=== PATIENT | male | born 1980 | race Caucasian/White ===

== ENCOUNTER 2016-07-30 05:36 | Emergency (ER) | payer OTHER ==
--- NOTE | 2016-07-30 07:51 | DIAGNOSTIC IMAGING REPORT ---
PROCEDURE: CT ABDOMEN/PELVIS W/O CONTRAST INDICATION: FLANK PAIN TECHNIQUE: Noncontrast axial images with sagittal and coronal reformations. COMPARISON: None. FINDINGS: ABDOMEN: There is mild right hydronephrosis secondary to a 10 mm calculus located at the right ureteral pelvic junction. There is a 1 mm nonobstructing calculus in the lower pole right kidney. Left kidney and ureter are normal. Gallbladder, liver, spleen, pancreas, and aorta are normal. Bowel pattern is normal, including appendix. PELVIS: Prostate is of normal size 94.1 cm). Pelvic structures are normal. IMPRESSION: 1. Mild right hydronephrosis secondary to a 10 mm calculus located at the right ureteral pelvic junction. 2. There is a 1 mm nonobstructing calculus in the lower pole right kidney. 3. Findings discussed with Dr. Zhang. All CT scans at this facility use dose modulation, iterative reconstruction, and/or weight-based dosing when appropriate to reduce radiation dose to as low as reasonably achievable.
--- NOTE | 2016-07-30 08:13 | DIAGNOSTIC IMAGING REPORT ---
PROCEDURE: XR ABDOMEN 1 VIEW INDICATION: Right ureteral pelvic junction calculus. TECHNIQUE: AP supine view. COMPARISON: Compared CT abdomen and pelvis earlier (07/30/2016). FINDINGS: There is a 10 mm density in the right upper abdomen which corresponds to the ureteral pelvic junction calculus. A 1 mm renal calculus is not clearly identified Bowel pattern is normal. Soft tissues and osseous structures are normal. IMPRESSION: 1. There is a 10 mm density in the right upper abdomen which corresponds to the ureteral pelvic junction calculus.
--- NOTE | 2016-07-30 09:34 | ED NURSING NOTES ---
Clinical Report - Nurses [facility] [address] [place] [address] 07/30/2016 5:35 Patient: MASOUD MUÑOZ TRIAGE Triage time 05:40. Acuity: LEVEL 3. Chief Complaint: NAUSEA and FLANK PAIN. --05:47 Iman Reyna R.N. 05:39 07/30/16. BP: 150/93. HR: 95. RR: 20 (regular and unlabored). O2 saturation: 99%. Temp: 97.9 F (oral). Pain level now: 11/26. --05:47 Iman Reyna R.N. Weight: 113.3 kg stated. Height/Length: 70 inches Per Patient. BMI: 35.8. --05:42 Iman Reyna R.N. Medications None. --05:42 Iman Reyna R.N. Allergies Vicoden. Definite Severe(hives) --05:51 Iman Reyna R.N. The following entry was struck by Iman Reyna R.N., 05:51 (07/30/16) Reason - other(pt stated). <<STRICKEN ENTRY-- No Known Drug Allergy. --05:42 Iman Reyna R.N. --END STRIKE>>. History Arrived by private vehicle. Historian: patient. Accompanied by family. Primary physician (none). ( right sided pain, N/V started about 329. hx of kidney stones). Last oral intake by patient was (2129). 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 PAST MEDICAL HX: Immunizations: up-to-date. SOCIAL HX: Light tobacco smoker (cigarette)- less than 1/2 a pack per day. Alcohol use; consumes two beers. History of occasional drug use: marijuana. (7 days ago). No known contact with a sick individual. ABUSE ASSESSMENT: No report of abuse. SELF HARM ASSESSMENT: A self harm assessment was performed. The patient answered "no" to the question "Have you recently felt down, depressed, or hopeless?", "Have you noticed less interest or pleasure in doing things?", "Do you have thoughts of harming or killing yourself?", "Are you here because you tried to hurt yourself?", "Have you ever tried to hurt yourself before today?", "Have you recently had thoughts about harming or killing others?" and "Do you have any dangerous items in your possession?". FALL RISK ASSESSMENT: Fall risk assessment completed. No fall risk identified. NUTRITIONAL RISK ASSESSMENT: The nutritional risk assessment revealed no deficiencies. FUNCTIONAL ASSESSMENT: Functional assessment: no impairments noted. LEARNING NEEDS ASSESSMENT: The learning needs assessment revealed no barriers. SKIN INTEGRITY ASSESSMENT: Skin integrity risk assessment completed. No skin integrity risk identified. --05:47 Iman Reyna R.N. PROBLEMS: Nephrolithiasis. Left ocular fx. Sinusitis. Muscle Strain, Lower Extremity. Back Pain. Sprain. Myofascial Strain. Renal Colic. Tetanus Status. Immunizations. --05:42 Iman Reyna R.N. ADDITIONAL SURGERIES: Metal plate under left eye. Nose reconstructed. Tonsillectomy. --05:42 Iman Reyna R.N. Interventions ID band on patient. --05:47 Iman Reyna R.N. PHYSICAL ASSESSMENT Ambulatory to room. GENERAL / NEURO / PSYCH: Alert. Oriented X 4. Appears in pain. HEENT: Mucous membranes are pink. RESPIRATORY: Respirations not labored. Breath sounds within normal limits. CVS: Normal sinus rhythm noted. Capillary refill less than 2 seconds. GI / : The patient has had intermittent episodes of nausea. Emesis noted. Has vomited several times. Abdominal tenderness (right flank pain). Bowel sounds within normal limits. SKIN: Skin is profusely diaphoretic. --05:49 Iman Reyna R.N. NURSING PROGRESS NOTES Two patient identifiers checked. Call light placed in reach. Side rails up x 2. Bed placed in lowest position. Brakes of bed on. Patient ready for evaluation- chart flagged. --05:49 Iman Reyna R.N. 05:50 07/30/2016 Site #1 started via IV in the right antecubital space with an 20g angiocath, with aseptic technique and good blood return; one attempt. Blood drawn: rainbow set. Labeled in the presence of the patient and sent to the lab. Saline lock flushed with 10 mL saline. --06:00 Iman Reyna R.N. 05:58 07/30/2016 Zofran (Ondansetron HCl) IVP 4 mg given over 2 minute(s) via site #1. Allergies verified and confirmed 5 rights. IV patency established. IV site checked: no pain, redness, or swelling. IV flushed thoroughly pre- and post-medication administration. IVP given by RN. --06:01 Iman Reyna R.N. 06:00 07/30/2016 Toradol IVP 30 mg given over 2 minute(s) via site #1. Allergies verified and confirmed 5 rights. IV patency established. IV site checked: no pain, redness, or swelling. IV flushed thoroughly pre- and post-medication administration. IVP given by RN. --06:01 Iman Reyna R.N. 06:17 07/30/2016 Toradol IVP Response: pain is improving. Symptoms have improved the patient feels better. --06:17 Iman Reyna R.N. ( pt ambulating to BR attempting to void). --06:28 Iman Reyna R.N. 06:28 07/30/2016 Started bag #1 1000 mL IV Fluids IV NS (Saline); bolus of 1000 mL wide open then over 1 hour(s) via site #1. Allergies verified and confirmed 5 rights. IV patency established. IV site checked: no pain, redness, or swelling. IV flushed thoroughly pre- and post-medication administration. --06:29 Iman Reyna R.N. Patient ID band checked for patient name and birthdate: patient confirmed. Instructions provided to collect clean catch urine and patient verbalized understanding. Clean catch urine collected with return of prasad-colored clear urine; sample sent to lab for urinalysis and culture. Specimen labeled in the presence of the patient. --06:45 Iman Reyna R.N. Two patient identifiers checked. Call light placed in reach. Side rails up x 1. Bed placed in lowest position. Brakes of bed on. --06:45 Iman Reyna R.N. 06:57 07/30/2016 Dilaudid (HYDROmorphone HCl PF) IVP 0.5 mg given over 2 minute(s) via site #1. Allergies verified, confirmed 5 rights and sedative warning given to the patient and patient's family. IV patency established. IV site checked: no pain, redness, or swelling. IV flushed thoroughly pre- and post-medication administration. IVP given by RN. --06:57 Iman Reyna R.N. Patient transported to CT by stretcher with tech. (06:58). --06:59 Iman Reyna R.N. 07:23 07/30/2016 Flomax (Tamsulosin HCl) PO Capsules 0.4 mg given. Allergies verified and confirmed 5 rights. --07:23 Nel Phan R.N. 07:37 07/30/2016 Dilaudid (HYDROmorphone HCl PF) IVP 0.5 mg given over 2 minute(s) via site #1. Allergies verified, confirmed 5 rights and sedative warning given to the patient and patient's family. IV patency established. IV site checked: no pain, redness, or swelling. IV flushed thoroughly pre- and post-medication administration. IVP given by RN. --07:37 Nel Phan R.N. Patient walked to radiology with tech. --07:45 Nel Phan R.N. Patient walked back to ED from radiology with tech. --07:56 Nel Phan R.N. 08:01 07/30/2016 Dilaudid (HYDROmorphone HCl PF) IVP 0.5 mg given over 2 minute(s) via site #1. Allergies verified, confirmed 5 rights and sedative warning given to the patient and patient's family. IV patency established. IV site checked: no pain, redness, or swelling. IV flushed thoroughly pre- and post-medication administration. IVP given by RN. --08:01 Nel Phan R.N. 08:15 07/30/2016 IV Fluids IV NS Discontinued: bag #1 infused. Total amount infused: 1000 mL. --08:15 Nel Phan R.N. 08:17 07/30/2016 Started bag #1 1000 mL IV Fluids IV NS (Saline); at 150 mL/hr via site #1 --08:17 Nel Phan R.N. 08:34 07/30/2016 Dilaudid (HYDROmorphone HCl PF) IVP 0.5 mg given over 2 minute(s) via site #1. Allergies verified, confirmed 5 rights and sedative warning given to the patient and patient's family. IV patency established. IV site checked: no pain, redness, or swelling. IV flushed thoroughly pre- and post-medication administration. IVP given by RN. --08:34 Nel Phan R.N. ( Called Dr. Carolyn Garcia for Dr. Zhang .-[phone]). --08:41 Terrie Haji ER [facility] [place] 09:49 07/30/2016 IV Fluids IV NS Discontinued. Total amount infused: 150 mL. IV patency established. IV site checked: no pain, redness, or swelling. IV flushed thoroughly. --09:59 Masoud Lobato R.N. 09:50 07/30/2016 Dilaudid (HYDROmorphone HCl PF) IVP 0.5 mg given over 2 minute(s) via site #1. Allergies verified, confirmed 5 rights and sedative warning given to the patient. IV patency established. IV site checked: no pain, redness, or swelling. IV flushed thoroughly pre- and post-medication administration. IVP given by RN. --09:51 Masoud Lobato R.N. DISPOSITION / DISCHARGE 09:53 07/30/2016 Site #[address] upon transfer. Flushed with 10 mL saline; flushes easily (to [facility] via MD angie CEVALLOS with pt leaving IV in). --09:53 Masoud Lobato R.N. 09:54 07/30/16. Condition at departure: improved. The goals identified in the patient's plan of care were met. No learning barriers present. Discharge instructions provided and reviewed with the patient. Reviewed warnings. Reviewed medication(s). Treatments reviewed. Reviewed referrals for followup and testing (To [facility] surgery). Patient and spouse verbalized understanding. Written instructions provided in Danish. The patient was discharged by the physician. He was discharged home and accompanied by family. He left the Emergency Department ambulatory and via private vehicle. Family member driving. ( To [facility] for Surgery today). FALL RISK ASSESSMENT: Fall risk assessment completed. No fall risk identified. --09:54 Masoud Lobato R.N. 09:52 07/30/16. BP: 148/91. HR: 87. RR: 18. O2 saturation: 99% on room air. Temp: 98.2 F (oral). Pain level now: 07/27. --09:54 Masoud Lobato R.N. 09:54 07/30/16. Departure time: :Jul 30 2016. --09:54 Masoud Lobato R.N. Locked/Released at 07/30/2016 9:59 by Masoud Lobato R.N.
--- NOTE | 2016-07-30 09:34 | ED NURSING NOTES ---
Clinical Report - Nurses [facility] [address] [place] [address] 07/30/2016 5:35 Patient: MASOUD MUÑOZ TRIAGE Triage time 05:40. Acuity: LEVEL 3. Chief Complaint: NAUSEA and FLANK PAIN. --05:47 Iman Reyna R.N. 05:39 07/30/16. BP: 150/93. HR: 95. RR: 20 (regular and unlabored). O2 saturation: 99%. Temp: 97.9 F (oral). Pain level now: 11/26. --05:47 Iman Reyna R.N. Weight: 113.3 kg stated. Height/Length: 70 inches Per Patient. BMI: 35.8. --05:42 Iman Reyna R.N. Medications None. --05:42 Iman Reyna R.N. Allergies Vicoden. Definite Severe(hives) --05:51 Iman Reyna R.N. The following entry was struck by Iman Reyna R.N., 05:51 (07/30/16) Reason - other(pt stated). <<STRICKEN ENTRY-- No Known Drug Allergy. --05:42 Iman Reyna R.N. --END STRIKE>>. History Arrived by private vehicle. Historian: patient. Accompanied by family. Primary physician (none). ( right sided pain, N/V started about 329. hx of kidney stones). Last oral intake by patient was (2129). 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 PAST MEDICAL HX: Immunizations: up-to-date. SOCIAL HX: Light tobacco smoker (cigarette)- less than 1/2 a pack per day. Alcohol use; consumes two beers. History of occasional drug use: marijuana. (7 days ago). No known contact with a sick individual. ABUSE ASSESSMENT: No report of abuse. SELF HARM ASSESSMENT: A self harm assessment was performed. The patient answered "no" to the question "Have you recently felt down, depressed, or hopeless?", "Have you noticed less interest or pleasure in doing things?", "Do you have thoughts of harming or killing yourself?", "Are you here because you tried to hurt yourself?", "Have you ever tried to hurt yourself before today?", "Have you recently had thoughts about harming or killing others?" and "Do you have any dangerous items in your possession?". FALL RISK ASSESSMENT: Fall risk assessment completed. No fall risk identified. NUTRITIONAL RISK ASSESSMENT: The nutritional risk assessment revealed no deficiencies. FUNCTIONAL ASSESSMENT: Functional assessment: no impairments noted. LEARNING NEEDS ASSESSMENT: The learning needs assessment revealed no barriers. SKIN INTEGRITY ASSESSMENT: Skin integrity risk assessment completed. No skin integrity risk identified. --05:47 Iman Reyna R.N. PROBLEMS: Nephrolithiasis. Left ocular fx. Sinusitis. Muscle Strain, Lower Extremity. Back Pain. Sprain. Myofascial Strain. Renal Colic. Tetanus Status. Immunizations. --05:42 Iman Reyna R.N. ADDITIONAL SURGERIES: Metal plate under left eye. Nose reconstructed. Tonsillectomy. --05:42 Iman Reyna R.N. Interventions ID band on patient. --05:47 Iman Reyna R.N. PHYSICAL ASSESSMENT Ambulatory to room. GENERAL / NEURO / PSYCH: Alert. Oriented X 4. Appears in pain. HEENT: Mucous membranes are pink. RESPIRATORY: Respirations not labored. Breath sounds within normal limits. CVS: Normal sinus rhythm noted. Capillary refill less than 2 seconds. GI / : The patient has had intermittent episodes of nausea. Emesis noted. Has vomited several times. Abdominal tenderness (right flank pain). Bowel sounds within normal limits. SKIN: Skin is profusely diaphoretic. --05:49 Iman Reyna R.N. NURSING PROGRESS NOTES Two patient identifiers checked. Call light placed in reach. Side rails up x 2. Bed placed in lowest position. Brakes of bed on. Patient ready for evaluation- chart flagged. --05:49 Iman Reyna R.N. 05:50 07/30/2016 Site #1 started via IV in the right antecubital space with an 20g angiocath, with aseptic technique and good blood return; one attempt. Blood drawn: rainbow set. Labeled in the presence of the patient and sent to the lab. Saline lock flushed with 10 mL saline. --06:00 Iman Reyna R.N. 05:58 07/30/2016 Zofran (Ondansetron HCl) IVP 4 mg given over 2 minute(s) via site #1. Allergies verified and confirmed 5 rights. IV patency established. IV site checked: no pain, redness, or swelling. IV flushed thoroughly pre- and post-medication administration. IVP given by RN. --06:01 Iman Reyna R.N. 06:00 07/30/2016 Toradol IVP 30 mg given over 2 minute(s) via site #1. Allergies verified and confirmed 5 rights. IV patency established. IV site checked: no pain, redness, or swelling. IV flushed thoroughly pre- and post-medication administration. IVP given by RN. --06:01 Iman Reyna R.N. 06:17 07/30/2016 Toradol IVP Response: pain is improving. Symptoms have improved the patient feels better. --06:17 Iman Reyna R.N. ( pt ambulating to BR attempting to void). --06:28 Iman Reyna R.N. 06:28 07/30/2016 Started bag #1 1000 mL IV Fluids IV NS (Saline); bolus of 1000 mL wide open then over 1 hour(s) via site #1. Allergies verified and confirmed 5 rights. IV patency established. IV site checked: no pain, redness, or swelling. IV flushed thoroughly pre- and post-medication administration. --06:29 Iman Reyna R.N. Patient ID band checked for patient name and birthdate: patient confirmed. Instructions provided to collect clean catch urine and patient verbalized understanding. Clean catch urine collected with return of prasad-colored clear urine; sample sent to lab for urinalysis and culture. Specimen labeled in the presence of the patient. --06:45 Iman Reyna R.N. Two patient identifiers checked. Call light placed in reach. Side rails up x 1. Bed placed in lowest position. Brakes of bed on. --06:45 Iman Reyna R.N. 06:57 07/30/2016 Dilaudid (HYDROmorphone HCl PF) IVP 0.5 mg given over 2 minute(s) via site #1. Allergies verified, confirmed 5 rights and sedative warning given to the patient and patient's family. IV patency established. IV site checked: no pain, redness, or swelling. IV flushed thoroughly pre- and post-medication administration. IVP given by RN. --06:57 Iman Reyna R.N. Patient transported to CT by stretcher with tech. (06:58). --06:59 Iman Reyna R.N. 07:23 07/30/2016 Flomax (Tamsulosin HCl) PO Capsules 0.4 mg given. Allergies verified and confirmed 5 rights. --07:23 Nel Phan R.N. 07:37 07/30/2016 Dilaudid (HYDROmorphone HCl PF) IVP 0.5 mg given over 2 minute(s) via site #1. Allergies verified, confirmed 5 rights and sedative warning given to the patient and patient's family. IV patency established. IV site checked: no pain, redness, or swelling. IV flushed thoroughly pre- and post-medication administration. IVP given by RN. --07:37 Nel Phan R.N. Patient walked to radiology with tech. --07:45 Nel Phan R.N. Patient walked back to ED from radiology with tech. --07:56 Nel Phan R.N. 08:01 07/30/2016 Dilaudid (HYDROmorphone HCl PF) IVP 0.5 mg given over 2 minute(s) via site #1. Allergies verified, confirmed 5 rights and sedative warning given to the patient and patient's family. IV patency established. IV site checked: no pain, redness, or swelling. IV flushed thoroughly pre- and post-medication administration. IVP given by RN. --08:01 Nel Phan R.N. 08:15 07/30/2016 IV Fluids IV NS Discontinued: bag #1 infused. Total amount infused: 1000 mL. --08:15 Nel Phan R.N. 08:17 07/30/2016 Started bag #1 1000 mL IV Fluids IV NS (Saline); at 150 mL/hr via site #1 --08:17 Nel Phan R.N. 08:34 07/30/2016 Dilaudid (HYDROmorphone HCl PF) IVP 0.5 mg given over 2 minute(s) via site #1. Allergies verified, confirmed 5 rights and sedative warning given to the patient and patient's family. IV patency established. IV site checked: no pain, redness, or swelling. IV flushed thoroughly pre- and post-medication administration. IVP given by RN. --08:34 Nel Phan R.N. ( Called Dr. Carolyn Garcia for Dr. Zhang .-[phone]). --08:41 Terrie Haji ER [facility] 09:49 07/30/2016 IV Fluids IV NS Discontinued. Total amount infused: 150 mL. IV patency established. IV site checked: no pain, redness, or swelling. IV flushed thoroughly. --09:59 Masoud Lobato R.N. 09:50 07/30/2016 Dilaudid (HYDROmorphone HCl PF) IVP 0.5 mg given over 2 minute(s) via site #1. Allergies verified, confirmed 5 rights and sedative warning given to the patient. IV patency established. IV site checked: no pain, redness, or swelling. IV flushed thoroughly pre- and post-medication administration. IVP given by RN. --09:51 Masoud Lobato R.N. DISPOSITION / DISCHARGE 09:53 07/30/2016 Site #[address] upon transfer. Flushed with 10 mL saline; flushes easily (to [facility] via MD angie CEVALLOS with pt leaving IV in). --09:53 Masoud Lobato R.N. 09:54 07/30/16. Condition at departure: improved. The goals identified in the patient's plan of care were met. No learning barriers present. Discharge instructions provided and reviewed with the patient. Reviewed warnings. Reviewed medication(s). Treatments reviewed. Reviewed referrals for followup and testing (To [facility]). Patient and spouse verbalized understanding. Written instructions provided in Kazakh. The patient was discharged by the physician. He was discharged home and accompanied by family. He left the Emergency Department ambulatory and via private vehicle. Family member driving. ( To [facility] for Surgery today). FALL RISK ASSESSMENT: Fall risk assessment completed. No fall risk identified. --09:54 Masoud Lobato R.N. 09:52 07/30/16. BP: 148/91. HR: 87. RR: 18. O2 saturation: 99% on room air. Temp: 98.2 F (oral). Pain level now: 07/27. --09:54 Masoud Lboato R.N. 09:54 07/30/16. Departure time: :Jul 30 2016. --09:54 Masoud Lobato R.N. Locked/Released at 07/30/2016 9:59 by Masoud Lobato R.N.
--- NOTE | 2016-07-30 09:34 | ED ORDER SUMMARY ---
..... Patient: MASOUD MUÑOZ OrderSheet [facility] VisitID: [id number] [place] [address] 36y, M Registration Date/Time: 07/30/2016 ORDER SHEET Weight: 113.3 kg (stated) Allergies: Vicoden GENERAL ORDERS: CBC w Diff Urgent (05:54 07/30/2016 Ino Gómez.Aleks verbal order read back to Karina FRANKEL) (6:00 Vaughn R.N.) CMP Urgent (05:54 07/30/2016 Ino Gómez.NAdriana verbal order read back to Karina FRANKEL) (6:00 Vaughn R.N.) UA-Culture if indicated Urgent (05:54 07/30/2016 Ino Gómez.NAdriana verbal order read back to Karina FRANKEL) (6:00 Vaughn R.N.) Amylase Urgent (06:49 07/30/2016 Karina FRANKEL) (7:01 Vaughn R.N.) Lipase Urgent (06:49 07/30/2016 Karina FRANKEL) (7:01 Vaughn R.N.) CT Abd/Pel wo Cont Urgent (06:50 07/30/2016 Karina FRANKEL) (6:58 Vaughn R.N.) Abdomen 1V Urgent (07:31 07/30/2016 Karina FRANKEL) (Ack 7:33 LNations ER Tech1) (8:01 Marleny R.N.) MEDICATION ORDERS: Flomax PO 0.4 mg (NOW) (07:11 07/30/2016 Karina FRANKEL) (7:23 Marleny R.N.) IV FLUIDS: Zofran IV 4 mg (NOW) (05:53 07/30/2016 Ino Gómez.NAdriana verbal order read back to Karina FRANKEL) (6:01 Vaughn R.N.) Toradol IV 30 mg (NOW) (05:53 07/30/2016 Ino Gómez.NAdriana verbal order read back to Karina FRANKEL) (6:01 Vaughn R.N.) IV Saline Lock (05:54 07/30/2016 Ino Gómez.NAdriana verbal order read back to Karina FRANKEL) (6:00 Vaughn Servin) IV NS : initial bolus 1000 mL (1000 mL/hr), then 150 mL/hr for 4h (NOW); Urgent (06:27 07/30/2016 Karina FRANKEL) (6:29 Vaughn Servin) Dilaudid IV 0.5 mg (HIGH ALERT MEDICATION, NOW) (06:49 07/30/2016 Karina FRANKEL) (6:57 Vaughn Servin) Dilaudid IV 0.5 mg (HIGH ALERT MEDICATION, NOW) (09:50 07/30/2016 Chapito Servin verbal order read back to Karina FRANKEL) (9:51 Chapito Servin) ORDER SHEET NOTES: [Electronically signed by Masoud Lobato R.N. (09:59 07/30/2016)] [Electronically signed by Delmar Zhang MD (09:26 08/01/2016)] [Electronically locked/signed by Masoud Lobato R.N. (09:59 07/30/2016)]
--- NOTE | 2016-07-30 09:34 | ED CLINICAL REPORT ---
Clinical Report - Physicians/Mid Levels [facility] [address] [place] [address] 07/30/2016 5:35 Patient: MASOUD MUÑOZ Time Seen: 05:55. Arrived- By private vehicle. Historian- patient. HISTORY OF PRESENT ILLNESS Chief Complaint: RIGHT FLANK PAIN. This started several hours ago and is still present. The problem is described as severe. It was abrupt in onset and has been constant and waxing/waning. The patient has had severe, crampy right-sided flank pain with nausea and vomiting. Sexual history is noncontributory. Similar symptoms previously: Several times. Diagnosis: renal colic. REVIEW OF SYSTEMS No chills, fever, calf pain, chest pain or cough. No difficulty breathing, pedal edema, palpitations, black stools or bloody stools. No constipation. He has experienced sweats. (when vomiting). All systems otherwise negative, except as recorded above. PAST HISTORY Problems: Nephrolithiasis. Left ocular fx. Sinusitis. Sunburn. Muscle Strain, Lower Extremity. Back Pain. Sprain. Myofascial Strain. Renal Colic. Additional Surgeries: Metal plate under left eye. Nose reconstructed. Tonsillectomy. Medications: None. Allergies: Vicoden. Definite Severe(hives). SOCIAL HISTORY Light tobacco smoker (cigarette)- less than 1/2 a pack per day. Occasional alcohol use. History of occasional drug use: marijuana. FAMILY HISTORY Denies family medical history. ADDITIONAL NOTES The nursing notes have been reviewed. PHYSICAL EXAM Vital Signs: 07/30/2016 05:39 BP: 150/93. HR: 95. RR: 20. O2 saturation: 99%. Temp: 97.9 F. Pain level now: 1010. Have been reviewed. Appearance: Alert. Appears to be in pain. ENT: Pharynx normal. Neck: Neck supple. CVS: Heart sounds normal. Respiratory: No respiratory distress. Breath sounds normal. Abdomen: Soft and nontender. Bowel sounds normal. No organomegaly. No mass. Back: Normal external inspection. No CVA tenderness. Skin: Skin warm and dry. Normal skin color. No rash. Normal skin turgor. Extremities: Extremities exhibit normal ROM. No calf tenderness. No lower extremity edema. LABS, X-RAYS, AND EKG Abdominal CT: IMPRESSION: 1. Mild right hydronephrosis secondary to a 10 mm calculus located at the right ureteral pelvic junction. 2. There is a 1 mm nonobstructing calculus in the lower pole right kidney. The study was interpreted contemporaneously by me and discussed with the radiologist. Laboratory Tests: UA-Culture if indicated: (CHON: 07/30/2016 06:36) ( [facility] 07/30/2016 06:47) IP Test Result Flag Units (Reference) URINE COLOR YELLOW URINE APPEARANCE CLEAR URINE GLUCOSE NEGATIVE (NEGATIVE) URINE BILIRUBIN NEGATIVE (NEGATIVE) URINE KETONE NEGATIVE (NEGATIVE) URINE SPECIFIC GRAVITY >= 1.030 (1.010-1.030) URINE PH 5.5 (5.0-8.0) URINE PROTEIN NEGATIVE (NEGATIVE) URINE UROBILINOGEN 0.2 EU/dL (0.2-1.0) URINE NITRITE NEGATIVE (NEGATIVE) URINE BLOOD 3+ (NEGATIVE) URINE LEUK ESTERASE NEGATIVE (NEGATIVE) CBC w Diff: (CHON: 07/30/2016 05:45) ( [facility] 07/30/2016 06:01) Final results Test Result Flag Units (Reference) WHITE BLOOD COUNT 11.6 H K/uL (4.5-11.5) RED BLOOD COUNT 5.15 M/uL (4.50-5.90) HEMOGLOBIN 16.0 gm/dL (13.5-17.5) HEMATOCRIT 47.3 % (41.0-53.0) MEAN CELL VOLUME 92 fL (80-100) MEAN CORPUSCULAR HGB 31 pg (26-34) MEAN CORPUSCULAR HGB CONC 34 g/dL (31-37) RED CELL DISTRIBUTION WIDTH 12.4 % (11.6-14.8) PLATELET COUNT 271 K/uL (150-400) NEUTROPHIL % 45.5 L % (50-75) LYMPH % 45.3 H % (25-40) MONO % 6.3 % (3-14) EOSINOPHIL % 2.4 % (0-4) BASOPHIL % 0.5 % (0-2) CMP: (CHON: 07/30/2016 05:45) ( MsgRcvd 07/30/2016 06:11) Final results Test Result Flag Units (Reference) GLUCOSE 139 H mg/dL (70-110) BUN 14 mg/dL (7-18) CREATININE 1.1 mg/dL (0.6-1.3) Estimated GFR >60 mL/min Estimated GFR- >60 mL/min Note: Persistent reduction over 3 months in eGFR<60 mL/min/1.73 m2 defines CKD. Patients with eGFR values>=60 mL/min/1.73 m2 may also have CKD if evidence ofpersistent proteinuria. Additional information may be foundat www.kidney.org. SODIUM 143 mmol/L (136-145) POTASSIUM 3.8 mmol/L (3.5-5.1) CHLORIDE 106 mmol/L (98-107) CARBON DIOXIDE 23 mmol/L (21-32) CALCIUM 9.2 mg/dL (8.5-10.1) TOTAL PROTEIN 7.9 g/dL (6.4-8.2) ALBUMIN 4.1 g/dL (3.3-5.0) BILIRUBIN, TOTAL 0.5 mg/dL (0.0-1.0) ALKALINE PHOSPHATASE 93 U/L (46-116) AST (SGOT) 33 U/L (15-37) ALT (SGPT) 86 H U/L (12-78) . PROGRESS AND PROCEDURES Consult obtained from urology. Carolyn Garcia at [facility]. Case discussed. Phone consult only. Patient/family counseled. Old medical records reviewed. Disposition: Transferred to [facility]. via POV with a heplock in place and with NPO instructions. CLINICAL IMPRESSION Right nephrolithiasis with renal colic. INSTRUCTIONS No driving or operating machinery while taking medication. Sedative medication was given during your visit. Do not eat or drink until scheduled test completed. (Proceed directly to [facility] as discussed. Check in at the main desk and request day surgery. Do not arrived there any later than 11 AM as discussed.). Warnings: Further evaluation is necessary. GENERAL WARNINGS: Return or contact your physician immediately if your condition worsens or changes unexpectedly, if not improving as expected, or if other problems arise. Follow-up: Follow up with a urologist today as scheduled. Understanding of the discharge instructions verbalized by patient and family. (Electronically signed by Delmar Zhang MD 08/01/2016 9:26)
--- NOTE | 2016-07-30 09:34 | ED ORDER SUMMARY ---
..... Patient: MASOUD MUÑOZ OrderSheet [facility] VisitID: [id number] [place] [address] 36y, M Registration Date/Time: 07/30/2016 ORDER SHEET Weight: 113.3 kg (stated) Allergies: Vicoden GENERAL ORDERS: CBC w Diff Urgent (05:54 07/30/2016 Ino Gómez.Aleks verbal order read back to Karina FRANKEL) (6:00 Vaughn R.N.) CMP Urgent (05:54 07/30/2016 Ino Gómez.NAdriana verbal order read back to Karina FRANKEL) (6:00 Vaughn R.N.) UA-Culture if indicated Urgent (05:54 07/30/2016 Ino Gómez.NAdriana verbal order read back to Karina FRANKEL) (6:00 Vaughn R.N.) Amylase Urgent (06:49 07/30/2016 Karina FRANKEL) (7:01 Vaughn R.N.) Lipase Urgent (06:49 07/30/2016 Karina FRANKEL) (7:01 Vaughn R.N.) CT Abd/Pel wo Cont Urgent (06:50 07/30/2016 Karina FRANKEL) (6:58 Vaughn R.N.) Abdomen 1V Urgent (07:31 07/30/2016 Karina FRANKEL) (Ack 7:33 LNations ER Tech1) (8:01 Marleny R.N.) MEDICATION ORDERS: Flomax PO 0.4 mg (NOW) (07:11 07/30/2016 Karina FRANKEL) (7:23 Marleny R.N.) IV FLUIDS: Zofran IV 4 mg (NOW) (05:53 07/30/2016 Ino Gómez.NAdriana verbal order read back to Karina FRANKEL) (6:01 Vaughn R.N.) Toradol IV 30 mg (NOW) (05:53 07/30/2016 Ino Gómez.NAdriana verbal order read back to Karina FRANKEL) (6:01 Vaughn R.N.) IV Saline Lock (05:54 07/30/2016 Ino Gómez.NAdriana verbal order read back to Karina FRANKEL) (6:00 Vaughn Servin) IV NS : initial bolus 1000 mL (1000 mL/hr), then 150 mL/hr for 4h (NOW); Urgent (06:27 07/30/2016 Karina FRANKEL) (6:29 Vaughn Servin) Dilaudid IV 0.5 mg (HIGH ALERT MEDICATION, NOW) (06:49 07/30/2016 Karina FRANKEL) (6:57 Vaughn Servin) Dilaudid IV 0.5 mg (HIGH ALERT MEDICATION, NOW) (09:50 07/30/2016 Chapito Servin verbal order read back to Karina FRANKEL) (9:51 Chapito Servin) ORDER SHEET NOTES: [Electronically signed by Masoud Lobato R.N. (09:59 07/30/2016)] [Electronically signed by Delmar Zhang MD (09:26 08/01/2016)] [Electronically locked/signed by Masoud Lobato R.N. (09:59 07/30/2016)]
--- NOTE | 2016-07-30 09:34 | ED CLINICAL REPORT ---
Clinical Report - Physicians/Mid Levels [facility] [address] [place] [address] 07/30/2016 5:35 Patient: MASOUD MUÑOZ Time Seen: 05:55. Arrived- By private vehicle. Historian- patient. HISTORY OF PRESENT ILLNESS Chief Complaint: RIGHT FLANK PAIN. This started several hours ago and is still present. The problem is described as severe. It was abrupt in onset and has been constant and waxing/waning. The patient has had severe, crampy right-sided flank pain with nausea and vomiting. Sexual history is noncontributory. Similar symptoms previously: Several times. Diagnosis: renal colic. REVIEW OF SYSTEMS No chills, fever, calf pain, chest pain or cough. No difficulty breathing, pedal edema, palpitations, black stools or bloody stools. No constipation. He has experienced sweats. (when vomiting). All systems otherwise negative, except as recorded above. PAST HISTORY Problems: Nephrolithiasis. Left ocular fx. Sinusitis. Sunburn. Muscle Strain, Lower Extremity. Back Pain. Sprain. Myofascial Strain. Renal Colic. Additional Surgeries: Metal plate under left eye. Nose reconstructed. Tonsillectomy. Medications: None. Allergies: Vicoden. Definite Severe(hives). SOCIAL HISTORY Light tobacco smoker (cigarette)- less than 1/2 a pack per day. Occasional alcohol use. History of occasional drug use: marijuana. FAMILY HISTORY Denies family medical history. ADDITIONAL NOTES The nursing notes have been reviewed. PHYSICAL EXAM Vital Signs: 07/30/2016 05:39 BP: 150/93. HR: 95. RR: 20. O2 saturation: 99%. Temp: 97.9 F. Pain level now: 1010. Have been reviewed. Appearance: Alert. Appears to be in pain. ENT: Pharynx normal. Neck: Neck supple. CVS: Heart sounds normal. Respiratory: No respiratory distress. Breath sounds normal. Abdomen: Soft and nontender. Bowel sounds normal. No organomegaly. No mass. Back: Normal external inspection. No CVA tenderness. Skin: Skin warm and dry. Normal skin color. No rash. Normal skin turgor. Extremities: Extremities exhibit normal ROM. No calf tenderness. No lower extremity edema. LABS, X-RAYS, AND EKG Abdominal CT: IMPRESSION: 1. Mild right hydronephrosis secondary to a 10 mm calculus located at the right ureteral pelvic junction. 2. There is a 1 mm nonobstructing calculus in the lower pole right kidney. The study was interpreted contemporaneously by me and discussed with the radiologist. Laboratory Tests: UA-Culture if indicated: (CHON: 07/30/2016 06:36) ( [facility] 07/30/2016 06:47) IP Test Result Flag Units (Reference) URINE COLOR YELLOW URINE APPEARANCE CLEAR URINE GLUCOSE NEGATIVE (NEGATIVE) URINE BILIRUBIN NEGATIVE (NEGATIVE) URINE KETONE NEGATIVE (NEGATIVE) URINE SPECIFIC GRAVITY >= 1.030 (1.010-1.030) URINE PH 5.5 (5.0-8.0) URINE PROTEIN NEGATIVE (NEGATIVE) URINE UROBILINOGEN 0.2 EU/dL (0.2-1.0) URINE NITRITE NEGATIVE (NEGATIVE) URINE BLOOD 3+ (NEGATIVE) URINE LEUK ESTERASE NEGATIVE (NEGATIVE) CBC w Diff: (CHON: 07/30/2016 05:45) ( [facility] 07/30/2016 06:01) Final results Test Result Flag Units (Reference) WHITE BLOOD COUNT 11.6 H K/uL (4.5-11.5) RED BLOOD COUNT 5.15 M/uL (4.50-5.90) HEMOGLOBIN 16.0 gm/dL (13.5-17.5) HEMATOCRIT 47.3 % (41.0-53.0) MEAN CELL VOLUME 92 fL (80-100) MEAN CORPUSCULAR HGB 31 pg (26-34) MEAN CORPUSCULAR HGB CONC 34 g/dL (31-37) RED CELL DISTRIBUTION WIDTH 12.4 % (11.6-14.8) PLATELET COUNT 271 K/uL (150-400) NEUTROPHIL % 45.5 L % (50-75) LYMPH % 45.3 H % (25-40) MONO % 6.3 % (3-14) EOSINOPHIL % 2.4 % (0-4) BASOPHIL % 0.5 % (0-2) CMP: (CHON: 07/30/2016 05:45) ( MsgRcvd 07/30/2016 06:11) Final results Test Result Flag Units (Reference) GLUCOSE 139 H mg/dL (70-110) BUN 14 mg/dL (7-18) CREATININE 1.1 mg/dL (0.6-1.3) Estimated GFR >60 mL/min Estimated GFR- >60 mL/min Note: Persistent reduction over 3 months in eGFR<60 mL/min/1.73 m2 defines CKD. Patients with eGFR values>=60 mL/min/1.73 m2 may also have CKD if evidence ofpersistent proteinuria. Additional information may be foundat [email or web address].org. SODIUM 143 mmol/L (136-145) POTASSIUM 3.8 mmol/L (3.5-5.1) CHLORIDE 106 mmol/L (98-107) CARBON DIOXIDE 23 mmol/L (21-32) CALCIUM 9.2 mg/dL (8.5-10.1) TOTAL PROTEIN 7.9 g/dL (6.4-8.2) ALBUMIN 4.1 g/dL (3.3-5.0) BILIRUBIN, TOTAL 0.5 mg/dL (0.0-1.0) ALKALINE PHOSPHATASE 93 U/L (46-116) AST (SGOT) 33 U/L (15-37) ALT (SGPT) 86 H U/L (12-78) . PROGRESS AND PROCEDURES Consult obtained from urology. Carolyn Garcia at [facility]. Case discussed. Phone consult only. Patient/family counseled. Old medical records reviewed. Disposition: Transferred to [facility]. via POV with a heplock in place and with NPO instructions. CLINICAL IMPRESSION Right nephrolithiasis with renal colic. INSTRUCTIONS No driving or operating machinery while taking medication. Sedative medication was given during your visit. Do not eat or drink until scheduled test completed. (Proceed directly to [facility] as discussed. Check in at the main desk and request day surgery. Do not arrived there any later than 11 AM as discussed.). Warnings: Further evaluation is necessary. GENERAL WARNINGS: Return or contact your physician immediately if your condition worsens or changes unexpectedly, if not improving as expected, or if other problems arise. Follow-up: Follow up with a urologist today as scheduled. Understanding of the discharge instructions verbalized by patient and family. (Electronically signed by Delmar Zhang MD 08/01/2016 9:26)
--- NOTE | 2016-08-01 09:27 | ED MAR SUMMARY ---
..... Medication Administration Record [facility] [address] [place] [place] [address] Patient: MASOUD MUÑOZ Visit ID: [id number] 36y, M Weight: 113.3 kg Height/Length: 70 in BMI: 35.8 ALLERGIES: Vicoden Given 05:58 07/30/2016 Iman Reyna R.N. Medication Administered: ZOFRAN [IVP] (ONDANSETRON HCL), Dose: 4 mg IVP over 2 minute(s), Site: #1 right AC. Medication Ordered: Zofran IV 4 mg (NOW). Given 06:00 07/30/2016 Iman Reyna R.N. Medication Administered: TORADOL [IVP], Dose: 30 mg IVP over 2 minute(s), Site: #1 right AC. Medication Ordered: Toradol IV 30 mg (NOW). Start 06:28 07/30/2016 Iman Reyna R.N., Stop 08:15 07/30/2016 Nel Phan R.N. Medication Administered: IV NS (SALINE), Dose: IV Fluids over 1 hour(s), Bolus: 1000 mL wide open, Dispensed: 1000 mL bag, Site: #1 right AC. Medication Ordered: IV NS : initial bolus 1000 mL (1000 mL/hr), then 150 mL/hr for 4h (NOW); Urgent. Given 06:57 07/30/2016 Iman Reyna R.N. Medication Administered: DILAUDID [IVP] (HYDROMORPHONE HCL PF), Dose: 0.5 mg IVP over 2 minute(s), Site: #1 right AC. Medication Ordered: Dilaudid IV 0.5 mg (HIGH ALERT MEDICATION, NOW). Given 07:23 07/30/2016 Nel Phan R.N. Medication Administered: FLOMAX [PO] (TAMSULOSIN HCL), Dose: 0.4 mg Capsules PO. Medication Ordered: Flomax PO 0.4 mg (NOW). Given 07:37 07/30/2016 Nel Phan R.N. Medication Administered: DILAUDID [IVP] (HYDROMORPHONE HCL PF), Dose: 0.5 mg IVP over 2 minute(s), Site: #1 right AC. Medication Ordered: Dilaudid IV 0.5 mg (HIGH ALERT MEDICATION, NOW). Given 08:01 07/30/2016 Nel Phan R.N. Medication Administered: DILAUDID [IVP] (HYDROMORPHONE HCL PF), Dose: 0.5 mg IVP over 2 minute(s), Site: #1 right AC. Medication Ordered: Dilaudid IV 0.5 mg (HIGH ALERT MEDICATION, NOW). Start 08:17 07/30/2016 Nel Phan R.N., Stop 09:49 07/30/2016 Masoud Lobato R.N. Medication Administered: IV NS (SALINE), Dose: IV Fluids, Rate: 150 mL/hr, Dispensed: 1000 mL bag, Site: #1 right AC. Medication Ordered: IV NS : initial bolus 1000 mL (1000 mL/hr), then 150 mL/hr for 4h (NOW); Urgent. Given 08:34 07/30/2016 Nel Phan R.N. Medication Administered: DILAUDID [IVP] (HYDROMORPHONE HCL PF), Dose: 0.5 mg IVP over 2 minute(s), Site: #1 right AC. Medication Ordered: Dilaudid IV 0.5 mg (HIGH ALERT MEDICATION, NOW). Given 09:50 07/30/2016 Masoud Lobato R.N. Medication Administered: DILAUDID [IVP] (HYDROMORPHONE HCL PF), Dose: 0.5 mg IVP over 2 minute(s), Site: #1 right AC. Medication Ordered: Dilaudid IV 0.5 mg (HIGH ALERT MEDICATION, NOW).
--- NOTE | 2016-08-01 09:27 | ED MED RECONCILIATION SUMMARY ---
Patient: MASOUD MUÑOZ Medication Reconciliation Report [facility] VisitID: [id number] [address] [place] [address] 36y, M Registration Date/Time: 07/30/2016 Weight: 113.3 kg Height/Length: 70 in. BMI: 35.8 ALLERGIES: Vicoden The patient's Home Medications are listed below: NONE. The source(s) of the original Home Medication information: Not obtained. The following Medications were given to the patient in the Emergency Department: Toradol [IVP] IVP 30 mg, administered: 07/30/2016 6:00:00 AM Zofran [IVP] IVP 4 mg, administered: 07/30/2016 5:58:00 AM IV NS IV Fluids bolus 1000 mL wide open, administered: 07/30/2016 6:28:00 AM Dilaudid [IVP] IVP 0.5 mg, administered: 07/30/2016 6:57:00 AM Flomax [PO] PO 0.4 mg, administered: 07/30/2016 7:23:00 AM Dilaudid [IVP] IVP 0.5 mg, administered: 07/30/2016 7:37:00 AM Dilaudid [IVP] IVP 0.5 mg, administered: 07/30/2016 8:01:00 AM IV NS IV Fluids bolus 0, then 150 mL/hr, administered: 07/30/2016 8:17:00 AM Dilaudid [IVP] IVP 0.5 mg, administered: 07/30/2016 8:34:00 AM Dilaudid [IVP] IVP 0.5 mg, administered: 07/30/2016 9:50:00 AM The following Medications were prescribed to the patient: None.
--- NOTE | 2016-08-01 09:27 | ED DISCHARGE INSTRUCTIONS ---
Patient: MASOUD MUÑOZ General Instructions [facility] VisitID: [id number] [place] [address] 36y, M Registration Date/Time: 07/30/2016 Right nephrolithiasis with renal colic. INSTRUCTIONS No driving or operating machinery while taking medication. Sedative medication was given during your visit. Do not eat or drink until scheduled test completed. (Proceed directly to [facility] as discussed. Check in at the main desk and request day surgery. Do not arrived there any later than 11 AM as discussed.). Warnings: Further evaluation is necessary. GENERAL WARNINGS: Return or contact your physician immediately if your condition worsens or changes unexpectedly, if not improving as expected, or if other problems arise. Follow-up: Follow up with a urologist today as scheduled. Understanding of the discharge instructions verbalized by patient and family. ADDITIONAL INFORMATION Kidney Stone (W/ Colic) The sharp cramping pain and nausea/vomiting that you have is due to a small stone which has formed in the kidney and is now passing down a narrow tube (ureter) on its way to your bladder. Once it reaches your bladder, the pain will stop. The stone may pass in your urine stream in one piece. [The size may be 1/16" to 1/4" (1-6mm)]. Or, the stone may also break up into rl fragments which you may not even notice. Once you have had a kidney stone, you are at risk for developing another one in the future. Home Care: Drink plenty of fluids (at least 8 to 10 glasses of water a day). Most stones will pass on their own, but may take from a few hours to a few days. Sometimes the stone is too large to pass by itself and special methods will have to be used to remove the stone. Each time you urinate, do so in a jar. Pour the urine from the jar through the strainer and into the toilet. Continue doing this until 24 hours after your pain stops. By then, if there was a kidney stone, it should pass from your bladder. Some stones dissolve into sand-like particles and pass right through the strainer. In that case, you wont ever see a stone. Save any stone that you find in the strainer and bring it to your doctor for analysis. It may be possible to prevent certain types of stones from forming. Therefore, it is important to know what kind of stone you have. Try to stay as active as possible since this will help the stone pass. Do not stay in bed unless your pain prevents you from getting up. You may notice a red, pink or brown color to your urine. This is normal while passing a kidney stone. Follow Up with your doctor or return to this facility if the pain lasts more than 48 hours. Get Prompt Medical Attention if any of the following occur: Pain that is not controlled by the medicine given Repeated vomiting or unable to keep down fluids Weakness, dizziness or fainting Fever of 100.4F (38C) or higher, or as directed by your healthcare provider Passage of solid red or brown urine (can't see through it) or urine with lots of blood clots Unable to pass urine for 8 hours and increasing bladder pressure You have been given the following additional information: Kidney Stone W/ Colic No driving or operating machinery while taking medication. Sedative medication was given during your visit. (Electronically signed by Delmar Zhang MD 08/01/2016 9:26)
--- NOTE | 2016-08-01 09:27 | ED MED RECONCILIATION SUMMARY ---
Patient: MASOUD MUÑOZ Medication Reconciliation Report [facility] VisitID: [id number] [address] [place] [address] 36y, M Registration Date/Time: 07/30/2016 Weight: 113.3 kg Height/Length: 70 in. BMI: 35.8 ALLERGIES: Vicoden The patient's Home Medications are listed below: NONE. The source(s) of the original Home Medication information: Not obtained. The following Medications were given to the patient in the Emergency Department: Toradol [IVP] IVP 30 mg, administered: 07/30/2016 6:00:00 AM Zofran [IVP] IVP 4 mg, administered: 07/30/2016 5:58:00 AM IV NS IV Fluids bolus 1000 mL wide open, administered: 07/30/2016 6:28:00 AM Dilaudid [IVP] IVP 0.5 mg, administered: 07/30/2016 6:57:00 AM Flomax [PO] PO 0.4 mg, administered: 07/30/2016 7:23:00 AM Dilaudid [IVP] IVP 0.5 mg, administered: 07/30/2016 7:37:00 AM Dilaudid [IVP] IVP 0.5 mg, administered: 07/30/2016 8:01:00 AM IV NS IV Fluids bolus 0, then 150 mL/hr, administered: 07/30/2016 8:17:00 AM Dilaudid [IVP] IVP 0.5 mg, administered: 07/30/2016 8:34:00 AM Dilaudid [IVP] IVP 0.5 mg, administered: 07/30/2016 9:50:00 AM The following Medications were prescribed to the patient: None.
--- NOTE | 2016-08-01 09:27 | ED MAR SUMMARY ---
..... Medication Administration Record [facility] [address] [place] [address] Patient: MASOUD MUÑOZ Visit ID: [id number] 36y, M Weight: 113.3 kg Height/Length: 70 in BMI: 35.8 ALLERGIES: Vicoden Given 05:58 07/30/2016 Iman Reyna R.N. Medication Administered: ZOFRAN [IVP] (ONDANSETRON HCL), Dose: 4 mg IVP over 2 minute(s), Site: #1 right AC. Medication Ordered: Zofran IV 4 mg (NOW). Given 06:00 07/30/2016 Iman Reyna R.N. Medication Administered: TORADOL [IVP], Dose: 30 mg IVP over 2 minute(s), Site: #1 right AC. Medication Ordered: Toradol IV 30 mg (NOW). Start 06:28 07/30/2016 Iman Reyna R.N., Stop 08:15 07/30/2016 Nel Phan R.N. Medication Administered: IV NS (SALINE), Dose: IV Fluids over 1 hour(s), Bolus: 1000 mL wide open, Dispensed: 1000 mL bag, Site: #1 right AC. Medication Ordered: IV NS : initial bolus 1000 mL (1000 mL/hr), then 150 mL/hr for 4h (NOW); Urgent. Given 06:57 07/30/2016 Iman Reyna R.N. Medication Administered: DILAUDID [IVP] (HYDROMORPHONE HCL PF), Dose: 0.5 mg IVP over 2 minute(s), Site: #1 right AC. Medication Ordered: Dilaudid IV 0.5 mg (HIGH ALERT MEDICATION, NOW). Given 07:23 07/30/2016 Nel Phan R.N. Medication Administered: FLOMAX [PO] (TAMSULOSIN HCL), Dose: 0.4 mg Capsules PO. Medication Ordered: Flomax PO 0.4 mg (NOW). Given 07:37 07/30/2016 Nel Phan R.N. Medication Administered: DILAUDID [IVP] (HYDROMORPHONE HCL PF), Dose: 0.5 mg IVP over 2 minute(s), Site: #1 right AC. Medication Ordered: Dilaudid IV 0.5 mg (HIGH ALERT MEDICATION, NOW). Given 08:01 07/30/2016 Nel Phan R.N. Medication Administered: DILAUDID [IVP] (HYDROMORPHONE HCL PF), Dose: 0.5 mg IVP over 2 minute(s), Site: #1 right AC. Medication Ordered: Dilaudid IV 0.5 mg (HIGH ALERT MEDICATION, NOW). Start 08:17 07/30/2016 Nel Phan R.N., Stop 09:49 07/30/2016 Masoud Lobato R.N. Medication Administered: IV NS (SALINE), Dose: IV Fluids, Rate: 150 mL/hr, Dispensed: 1000 mL bag, Site: #1 right AC. Medication Ordered: IV NS : initial bolus 1000 mL (1000 mL/hr), then 150 mL/hr for 4h (NOW); Urgent. Given 08:34 07/30/2016 Nel Phan R.N. Medication Administered: DILAUDID [IVP] (HYDROMORPHONE HCL PF), Dose: 0.5 mg IVP over 2 minute(s), Site: #1 right AC. Medication Ordered: Dilaudid IV 0.5 mg (HIGH ALERT MEDICATION, NOW). Given 09:50 07/30/2016 Masoud Lobato R.N. Medication Administered: DILAUDID [IVP] (HYDROMORPHONE HCL PF), Dose: 0.5 mg IVP over 2 minute(s), Site: #1 right AC. Medication Ordered: Dilaudid IV 0.5 mg (HIGH ALERT MEDICATION, NOW).
== END 2016-07-30 09:54 | disposition home or self-care (01) ==
LOC: ED SRH 05:36
DX: N20.0 Calculus of kidney (principal); F17.210 Nicotine dependence, cigarettes, uncomplicated; Z88.5 Allergy status to narcotic agent
CPT/HCPCS: 90004; 90100; 92235; 92530; 95059